=== PATIENT | male | born 1930 | race Caucasian/White ===

== ENCOUNTER 2020-03-27 15:59 | Emergency (ER) | payer MEDICARE, OTHER ==
[2020-03-27] MEDS ORDERED: Bacitracin/Neomycin/Polymyxin B Oint 0.9 GM U/D Packet ONE (16:22)
--- NOTE | 2020-03-27 16:30 | EDM.PDOC ---
ED HPI GENERAL MEDICAL PROBLEM - General Stated Complaint: SORE ON LEFT FOOT Time Seen by Provider: 03/27/20 16:16 Source of Information: Reports: Patient History Limitations: Reports: No Limitations - History of Present Illness INITIAL COMMENTS - FREE TEXT/NARRATIVE: Patient presents with bleeding of left foot from tearing a callous off his bunion. He is on blood thinner for his A Fib and couldn't stop the bleeding. He always has a callous over the bunion that sometimes bothers him. - Related Data Allergies Allergy/AdvReac Type Severity Reaction Status Date / Time No Known Allergies Allergy Verified 09/27/18 21:25 Home Meds: Home Meds Aspirin 325 mg PO DAILY 09/27/18 [History] Garlic 1,000 mg PO DAILY 09/27/18 [History] Lisinopril 20 mg PO DAILY 09/27/18 [History] Lutein/Minerals/Vit A,C & E [Ocuvite] 1 tab PO DAILY 09/27/18 [History] Multivitamin [One Daily] 1 tab PO DAILY 09/27/18 [History] glipiZIDE [Glipizide Xl] 10 mg PO DAILY 09/27/18 [History] hydroCHLOROthiazide [Hydrochlorothiazide] 100 mg PO DAILY 09/27/18 [History] metFORMIN [Glucophage XR] 1,000 mg PO BID 09/27/18 [History] Past Medical History - Past Surgical History HEENT Surgical History: Reports: Tonsillectomy GI Surgical History: Reports: Appendectomy Musculoskeletal Surgical History: Reports: Hip Replacement Review of Systems - Review of Systems Review Of Systems: See Below Constitutional: Denies: Chills, Diaphoresis, Fever, Weakness Eyes: Reports: No Symptoms Ears: Denies: Dizziness, Pain Nose: Denies: Epistaxis, Pain Mouth/Throat: Denies: Bleeding, Pain Respiratory: Denies: Shortness of Breath, Cough Cardiovascular: Reports: Irregular Heart Rate. Denies: Chest Pain, Lightheadedness, Syncope GI/Abdominal: Denies: Abdominal Pain, Nausea, Vomiting Genitourinary: Denies: Dysuria Musculoskeletal: Denies: Neck Pain, Shoulder Pain, Arm Pain, Back Pain, Hand Pain Skin: Denies: Cyanosis, Jaundice, Mottled, Pallor, Diaphoresis Neurological: Denies: Confusion, Dizziness, Headache, Seizure, Syncope, Trouble Speaking, Difficulty Walking Psychiatric: Denies: Confusion ED EXAM, GENERAL - Physical Exam Exam: See Below Exam Limited By: No Limitations General Appearance: Alert, WD/WN, No Apparent Distress Eye Exam: Bilateral Eye: EOMI, Normal Inspection, PERRL Ears: Normal External Exam, Hearing Grossly Normal Nose: Normal Inspection, No Blood Throat/Mouth: Normal Inspection, Normal Voice, No Airway Compromise Head: Atraumatic, Normocephalic Neck: Normal Inspection, Full Range of Motion Respiratory/Chest: No Respiratory Distress, Lungs Clear, Normal Breath Sounds, No Accessory Muscle Use Cardiovascular: Normal Peripheral Pulses, Regular Rate, Rhythm (rhythm is quite regular currently), No Murmur GI/Abdominal: Normal Bowel Sounds, Soft, Non-Tender, No Organomegaly, No Distention Back Exam: Normal Inspection, Full Range of Motion. No: CVA Tenderness (L), CVA Tenderness (R) Extremities: Normal Range of Motion, Non-Tender, No Pedal Edema, Normal Capillary Refill, Other (Medial left first MTP is enlarged consistent with bunion. The skin overlying is torn superficially with dried red blood consistent with recent bleeding. No active bleeding currently. I removed the bandage and there is no evidence of cellulitis or inflammation.) Neurological: Alert, Oriented, Normal Cognition, No Motor/Sensory Deficits Psychiatric: Normal Affect, Normal Mood Skin Exam: Warm, Dry, Intact, Normal Color, No Rash Course - Orders/Labs/Meds Meds: Medications Discontinued Medications Generic Name Dose Route Start Last Admin Trade Name Freq PRN Reason Stop Dose Admin Neomycin/Polymyxin/Bacitracin Confirm 03/27/20 16:22 Triple Antibiotic Oint Administered 03/27/20 16:23 Dose 1 each .ROUTE .STK-MED ONE - Re-Assessments/Exams Free Text/Narrative Re-Assessment/Exam: 03/27/20 16:30 I discussed findings and recommendations with the patient. We cleaned up the wound, treated with topical antibiotic and placed sterile, non-adherent bandage. Patient discharged to home in stable condition. Departure - Departure Time of Disposition: 16:31 Disposition: Home, Self-Care 01 Condition: Good Clinical Impression: Bunion of great toe of left foot, Callus of foot, Bleeding from wound - Discharge Information Referrals: PCP,Not In Area [Primary Care Provider] - Additional Instructions: 1. Change the foot dressings once daily until it is healed up. 2. Apply the topical antibiotic daily with bandage change. 3. You can bathe or shower daily as needed. 4. Follow up with your PCP if any problems or sign of infection.
[2020-03-27] MEDS ORDERED: Bacitracin/Neomycin/Polymyxin B Oint 0.9 GM U/D Packet TOP ONE (17:37)
== END 2020-03-27 16:45 | disposition home or self-care (01) ==
LOC: KA.ED 15:59
DX: L84 Corns and callosities (principal); M21.612 Bunion of left foot; Z79.899 Other long term (current) drug therapy; Z79.82 Long term (current) use of aspirin
CPT/HCPCS: 99282; 99283